=== PATIENT | female | born 1990 | race Asian ===

== ENCOUNTER 2020-04-02 21:08 | Emergency (ER) | payer BC ==
[~2020-04-02] VITALS: Ht 160 cm; Wt 99.8 kg
[2020-04-02 22:07] VITALS: TEMP 98.9
[2020-04-03 00:07] VITALS: BP 110/75
== END 2020-04-03 00:07 | disposition home or self-care (01) ==
LOC: ED 21:08
DX: S80.11XA Contusion of right lower leg, initial encounter (principal); V43.53XA Car driver injured in collision with pick-up truck in traffic accident, initial encounter; Y92.89 Other specified places as the place of occurrence of the external cause
CPT/HCPCS: 99283